=== PATIENT | female | born 1985 | race Caucasian/White ===

== ENCOUNTER 2017-01-08 00:36 | Inpatient (IN) | payer SELFPAY ==
[~2017-01-08] VITALS: Ht 185.4 cm; Wt 124.0 kg
[~2017-01-08 00:36] MED LIST: ABILIFY30 MG; FLEXERIL5 MG PO; MIRTAZAPINE7.5 MG; MOTRIN800 MG PO; NORCO 5/325 TAB1 TAB PO; PERCOCET 5/3251 TAB PO; SEPTRA DS TABLE1 TAB PO; WAL-PROFEN200 MG; ZYRTEC5 MG; [UNRECOGNIZED DRUG - REMARK]
[2017-01-08] MEDS ORDERED: NO HOME MEDICATION XX (01:12)
[2017-01-08 01:28] LABS: BASO % 0.3 % (0-2); EOS % 1.1 % (0-7); EOSINOPHIL ABSOLUTE COUNT 0.1 tho/cmm (0.0-0.7); HGB-HEMOGLOBIN 14.6 gm/dl (12.0-15.5); IMMATURE GRANULOCYTES ABSOLUTE 0.03 tho/cmm (0-0.03); IMMATURE GRANULOCYTES PERCENT 0.3 % (0-0.3); LYMPH % 23.4 % (20-45); LYMPH ABSOLUTE COUNT 2.4 tho/cmm (0.8-4.5); MCH (MEAN CORPUSCULAR HGB) 30.1 pg (28.0-32.0); MCV (MEAN CELL VOLUME) 88.7 fl (82.0-96.0); MEAN PLATELET VOLUME 11.4 cmc (9.4-12.4); MONO % 10.6 % (0-12); MONOCYTE ABSOLUTE COUNT 1.1 tho/cmm (0.0-1.2); NEUTROPHIL ABSOLUTE COUNT 6.5 tho/cmm (1.6-8.0); NEUTROPHIL-AUTOMATED 6.5 tho/cmm (1.6-8.0); NEUTROPHILS % 64.3 % (40-80); PLATELET COUNT 223 tho/cmm (150-450); RED BLOOD COUNT 4.85 mil/cmm (4.00-5.20)
[2017-01-08 01:41] LABS: ANION GAP 9 mmol/L (0-20); BLOOD UREA NITROGEN 7 mg/dl (6-24); CALCIUM 8.4 mg/dl (8.5-10.5); CARBON DIOXIDE-VENOUS 25 mmol/L (22-32); CHLORIDE 106 mmol/l (96-110); CREATININE 0.87 mg/dl (0.50-1.10); GLUCOSE 105 mg/dL (70-110); POTASSIUM 3.4 mmol/L (3.7-5.1); SODIUM 137 mmol/L (135-145); eGFR VALUE FOR BLACK >90 mL/Min
[2017-01-08 06:32] LABS: ALB/GLOB RATIO 0.7 (0.8-2.0); ALBUMIN 3.1 g/dl (3.5-5.0); ALKALINE PHOSPHATASE 66 U/L (33-138); ALT/SGPT 26 U/L (12-78); ANION GAP 10 mmol/L (0-20); AST/SGOT 16 U/L (10-40); BILIRUBIN,TOTAL 0.5 mg/dl (0-1.5); BLOOD UREA NITROGEN 7 mg/dl (6-24); CALCIUM 8.1 mg/dl (8.5-10.5); CARBON DIOXIDE-VENOUS 23 mmol/L (22-32); CHLORIDE 111 mmol/l (96-110); CREATININE 0.67 mg/dl (0.50-1.10); GLUCOSE 95 mg/dL (70-110); POTASSIUM 3.5 mmol/L (3.7-5.1); SODIUM 140 mmol/L (135-145); eGFR VALUE FOR BLACK >90 mL/Min
[2017-01-08] MEDS ORDERED: ZITHROMAX250 M1 PO (16:34)
[2017-01-08] MEDS ORDERED: CEFDINIR300 M1 PO (16:35)
[2017-01-08] MEDS ORDERED: MUCINEX600 M1 PO (16:53)
[2017-01-08] MEDS ORDERED: IBUPROFEN200 M2 PO (16:57)
--- NOTE | 2017-01-08 17:31 | NUR ---
VIRTUAL CARE NOTE: PT DRESSED READY FOR DISCHARGE TEACHING. INFORMATION GIVEN TO PT, PT DENIES QUESTIONS OR CONCENRS. GWEN GUPTAN IN THE ROOM AT THIS TIME TO GET PT READY FOR DISCHARGE.
== END 2017-01-08 17:30 | DRG 195 ==
LOC: EDMED 00:36 → 5WD 03:48 → EMR2 03:48 → 5WD 05:15
PROVIDERS: Emergency Medicine; Nurse Practitioner Acute Care; ADMIT Family Medicine
PROC: 3E0234Z Introduction of Serum, Toxoid and Vaccine into Muscle, Percutaneous Approach (ICD-10-PCS; principal; 2017-01-08)
DX: J18.9 Pneumonia, unspecified organism (principal); B37.3 Candidiasis of vulva and vagina; F12.90 Cannabis use, unspecified, uncomplicated; R07.89 Other chest pain; Z23 Encounter for immunization; Z72.0 Tobacco use
CPT/HCPCS: G0009; G8978-GP-CI; G8979-GP-CI; G8980-GP-CI; J0456; J0696; J1650; J2405; J7030; J7050